=== PATIENT | male | born 1965 | race Caucasian/White ===

== ENCOUNTER → 2018-08-06 | Day surgery (SDC) | payer OTHER ==
[~2018-08-06] MED LIST: APRISO0.375 GM PO; AZATHIOPRINE50 MG PO; BUMETANIDE2 MG PO; DICYCLOMINE HCL10 MG PO; FENTANYL CITRATE/PF 100MCG/2 ML INJ ONE; GLUCAGON FOR INJ 1 MG VIAL ONE; HUMIRA40 MG/0.8 IM; HYOSCYAMINE SULFATE 0.5 MG/ML INJ ONE; MIDAZOLAM HCL 2 MG/2 ML VIAL ONE; PANTOPRAZOLE PO; PROPOFOL IV EMULSION 10 MG/ML 50 ML VIAL ONE; VERAPAMIL PO; [UNRECOGNIZED DRUG - OTHER] PO
[2018-08-06 08:39] LABS: WBC,FECAL (FECAL LACTOFERRIN) POSITIVE (NEGATIVE)
--- NOTE | 2018-08-06 11:18 | Operative Report ---
DATE OF PROCEDURE: August 06, 2018 REFERRING PHYSICIAN: Dr. Tha Burton. PROCEDURE PERFORMED: Colonoscopy and polypectomy with biopsies. INDICATIONS FOR PROCEDURE: Surveillance colonoscopy, personal history of colon polyps, history of distal ulcerative colitis with fecal urgency and frequency. Patient is on Humira 40 mg weekly, Apriso, and Imuran. MEDICATION: Patient was done under MAC. Please see anesthesiologist's note. PROCEDURE: With patient in left lateral decubitus position, flexible fiberoptic Olympus colonoscope was inserted into the rectum with ease and advanced all the way to the cecum. Two minute polyps were hot biopsied from the cecum. Ileocecal valve was intubated and the scope was advanced into the terminal ileum. Terminal ileum mucosa grossly appeared to be within normal limits, biopsies were obtained. The scope was then withdrawn back into the colon. It was then withdrawn slowly, and an approximately 4 mm sessile polyp was snared from the distal ascending colon. The transverse and proximal descending appeared to be within normal limits. The mucosa was diffusely ulcerated from approximately 45 cm from the anal verge all the way to the dentate line, biopsies were obtained. The scope was then retroflexed into the distal rectum and small internal hemorrhoids were noted none of which was actively bleeding. The scope was then straightened out and was subsequently withdrawn after securing an adequate stool specimen that was sent for the appropriate stool studies. Patient tolerated the procedure well. IMPRESSION 1. Cecal polyps x2, hot biopsied. 2. Ascending colon polyp, snared. 3. Mucosa, diffusely ulcerated and friable from approximately 45 cm from the anal verge all the way to the dentate line, biopsies obtained. 4. Small internal hemorrhoids, none actively bleeding. PLAN: Follow up histology. Follow up stool studies. Patient is not responding to current therapy. We will recheck Humira drug level as well as for serum antibodies. Might need to switch to another line of therapy i.e., Stelara and (IL-12 and IL-23 inhibitor) or possibly Xeljanz. We will add Canasa suppositories 1000 mg nightly. Job#: [id number] STY cc:DR. THA BURTON
[2018-08-06 15:10] LABS: C DIFFICILE TOXIN A&B AMP PROB NEGATIVE (NEGATIVE)
== END | disposition home or self-care (01) ==
LOC: OR 06:00
PROVIDERS: ATTEND Internal Medicine Gastroenterology
DX: C20 Malignant neoplasm of rectum (principal); K51.90 Ulcerative colitis, unspecified, without complications; D12.0 Benign neoplasm of cecum; D12.2 Benign neoplasm of ascending colon; K64.8 Other hemorrhoids; I10 Essential (primary) hypertension; I45.10 Unspecified right bundle-branch block; Z88.0 Allergy status to penicillin; Z01.810 Encounter for preprocedural cardiovascular examination
CPT/HCPCS: 45380; 45384; 45385; 83630; 83993; 87045; 87177; 87328; 87493; 93005; J1610; J1980; J2250

== ENCOUNTER → 2018-09-10 | Day surgery (SDC) | payer OTHER ==
[~2018-09-10] MED LIST changes: -GLUCAGON FOR INJ 1 MG VIAL ONE; +LIDOCAINE HCL 2% LOCAL INJ 5 ML SDV VIAL INJ ONE
--- NOTE | 2018-09-10 18:58 | Operative Report ---
DATE OF PROCEDURE: 09/10/2018 SURGEON: Hardeep Monroy MD PROCEDURE: Colonoscopy with polypectomy and biopsies. This is a colonoscopy to 50 cm from the anal verge. INDICATION FOR PROCEDURE: 1. 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 2. A repeat colonoscopy is being carried out after 5 weeks of local therapy with Canasa suppositories and p.o. Apriso. 3. Re-examine the anorectal area and obtain additional biopsies. MEDICATIONS: The patient was under MAC. Please see anesthesiologist's note. PROCEDURE IN DETAIL: With the patient in left decubitus position, a flexible fiberoptic Olympus colonoscope was inserted into the rectum with ease and advanced all the way to approximately 45 cm from the anal verge. Some partial healing was noted in the rectum as well as in the sigmoid colon. Several sessile somewhat raised focal areas were noted in the sigmoid colon and multiple biopsies were obtained. A 1.5 cm polypoid lesion in rectosigmoid area? Pseudopolyp removed per snare electrocautery. Mucosa overlying the sigmoid colon revealed some patchy ulcerated areas. The scope was retroflexed into the distal rectum and raised well-delineated lesion was noted to be arising from the dentate line and extending approximately 2 cm into the rectum. The scope was then straightened out and the lesion was extensively biopsied. The scope was subsequently withdrawn. The patient tolerated procedure well. IMPRESSION: 1. Colonoscopy is approximately 50 cm from the anal verge. There was some partial healing noted in both the sigmoid and the rectum. 2. Several sessile somewhat raised focal areas in sigmoid colon. Multiple biopsies were obtained. 3. Approximately 1.5 cm polypoid lesion in the rectosigmoid area, most likely a pseudopolyp removed per snare electrocautery. 4. Raised well-delineated lesion extending from the dentate line approximately 2 cm into the rectum, extensively biopsied. PLAN: Follow up histology. If biopsies of the anorectal lesion were positive for squamous cell carcinoma, the patient will need referral to an oncologist. ? MD Sandhu. Hardeep Monroy MD [facility] [place] /[id number] cc: Tha Pereyra MD
== END | disposition home or self-care (01) ==
LOC: OR 06:47
PROVIDERS: ATTEND Internal Medicine Gastroenterology
DX: K51.30 Ulcerative (chronic) rectosigmoiditis without complications (principal); K62.1 Rectal polyp; D01.2 Carcinoma in situ of rectum; I10 Essential (primary) hypertension; E11.9 Type 2 diabetes mellitus without complications
CPT/HCPCS: 45380; 45385; J1980; J2001; J2250; J2704; 45378; 45384

== ENCOUNTER → 2019-06-17 | Day surgery (SDC) | payer OTHER ==
[2019-06-16 12:02] LABS: BASOPHILS # (AUTO) 0.1 (0.0-0.1); BASOPHILS % 0.8 % (0.0-1.0); EOSINOPHILS # (AUTO) 0.3 (0.0-0.4); EOSINOPHILS % 4.5 % (0.0-6.0); HEMATOCRIT 42.6 % (38.2-49.6); HEMOGLOBIN 14.2 g/dL (14.0-18.0); LYMPHOCYTES # (AUTO) 1.1 (1.0-3.2); LYMPHOCYTES % 15.2 % (18.0-39.1); MEAN CORPUSCULAR HEMOGLOBIN 30.6 pg (28-32); MEAN CORPUSCULAR HGB CONC 33.3 g/dL (31-35); MEAN CORPUSCULAR VOLUME 91.8 fL (81-99); MONOCYTES # (AUTO) 0.9 (0.2-0.8); MONOCYTES % 12.5 % (4.4-11.3); NEUTROPHILS # (AUTO) 4.7 (2.1-6.9); NEUTROPHILS % 66.6 % (38.7-80.0); PLATELET COUNT 338 x10e3/uL (140-360); RED BLOOD COUNT 4.64 x10e6/uL (4.3-5.7); RED CELL DISTRIBUTION WIDTH 13.2 % (11.7-14.4)
[~2019-06-17] MED LIST changes: +DEXMEDETOMIDINE HCL 2 ML ONE; +HYOSCYAMINE 0.125 MG TAB ONE; -HYOSCYAMINE SULFATE 0.5 MG/ML INJ ONE; +KETAMINE HCL INJ 50 MG/ML 10 ML VIAL ONE
[2019-06-17 09:15] VITALS: BP 133/94
[2019-06-17 11:29] LABS: WBC,FECAL (FECAL LACTOFERRIN) POSITIVE (NEGATIVE)
[2019-06-17 12:56] LABS: C DIFFICILE TOXIN A&B AMP PROB NEGATIVE (NEGATIVE)
--- NOTE | 2019-06-17 17:42 | Operative Report ---
DATE OF PROCEDURE: 06/17/2019 SURGEON: Hardeep Monroy MD PROCEDURE: Colonoscopy with biopsies. INDICATIONS FOR COLONOSCOPY: History of ulcerative colitis, cancer of rectum, status post chemo and radiation therapy. MEDICATIONS: The patient was done under MAC. Please see anesthesiologist's note. DESCRIPTION OF PROCEDURE: With the patient in left lateral decubitus position, flexible fiberoptic Olympus colonoscope was inserted into the rectum with ease and advanced all the way to the cecum. The mucosa overlying the cecum appeared to be within normal limits. The ileocecal valve was intubated and the scope was advanced into the terminal ileum. Biopsies were obtained. The scope was then withdrawn back into the colon. It was then withdrawn slowly and mucosa overlying the ascending colon appeared to be within normal limits. Minute submucosal nodule was noted in the hepatic flexure and that was biopsied. The transverse colon appeared to be within normal limits. The mucosa appeared to be diffusely ulcerated in the left colon starting at approximately 50 cm from the anal verge and multiple random biopsies were obtained. The rectum also was diffusely ulcerated and biopsies were obtained. The scope was subsequently withdrawn after securing an adequate stool specimen that was sent for the appropriate stool studies. The patient tolerated the procedure well. IMPRESSION: 1. Minute nodule, minute submucosal nodule, hepatic flexure biopsied. 2. Diffusely ulcerated left colon up to 50 cm from the anal verge. Random biopsies obtained. 3. Proctitis, biopsies obtained. PLAN: Follow up histology. Follow up stool studies. Check Humira level. Check antidrug antibody levels. Pending the above. We might switch to another anti-TNF biologic or to vedolizumab or ustekinumab as the patient still have fairly active colitis despite current medical therapy. Hardeep Monroy MD [facility] – [place] /[id number] cc: Tha Pereyra MD
== END | disposition home or self-care (01) ==
LOC: OR 06:08
PROVIDERS: ATTEND Internal Medicine Gastroenterology
DX: K51.80 Other ulcerative colitis without complications (principal); Z08 Encounter for follow-up examination after completed treatment for malignant neoplasm; K62.1 Rectal polyp; K51.20 Ulcerative (chronic) proctitis without complications; Z85.048 Personal history of other malignant neoplasm of rectum, rectosigmoid junction, and anus; Z92.21 Personal history of antineoplastic chemotherapy; Z92.3 Personal history of irradiation; I10 Essential (primary) hypertension; Z01.810 Encounter for preprocedural cardiovascular examination; Z01.812 Encounter for preprocedural laboratory examination
CPT/HCPCS: 36415 ×2; 45380; 82542; 83630; 83993; 85025; 87045; 87177; 87328; 87493; 93005; J2001; J2250; J2704; J3010